=== PATIENT | male | born 1990 | race Caucasian/White ===

== ENCOUNTER 2016-09-28 10:40 | Emergency (ER) | payer MEDICAID ==
[2016-09-28 10:48] VITALS: BP 129/75
--- NOTE | 2016-09-28 11:02 | UC ---
UC General HPI - HPI Summary HPI Summary: 25 y/o male presents to the urgent care c/o feeling fatigue, severe joint pains , blurred vision on and off for the past several months. [place] and gets tick bites at all times, but haven't taking any prophylactic treatment. He states he also has HAs on and off w/ visual disturbances. Today he reports is mild pain in all his joints. He doesn't have a PCP. Pt denies fever, SOB, chest pian, N/V/D. He request the lyme serology and treatment. Pt has not other complains. - History of Current Complaint Hx Obtained From: Patient Onset/Duration: Gradual Onset, Lasting Weeks - even months on and off, Still Present Timing: Intermittent Episodes Lasting: Onset Severity: Moderate Current Severity: Moderate Pain Intensity: 4 Associated Signs & Symptoms: Positive: Back Pain, Headache, Other - join pains, myalgias. Negative: Chest Pain, Dizziness, Diarrhea, Edema, Vomiting <Marcie De La Cruz - Last Filed: 09/28/16 12:05> <Lisa Ennis - Last Filed: 09/28/16 12:14> - History of Current Complaint Chief Complaint: UCGeneralIllness Stated Complaint: FATIGUE,SHORT TERM MEM LOSS, JOINT COMPLAINTS Time Seen by Provider: 09/28/16 10:53 - Allergy/Home Medications Allergies/Adverse Reactions: Allergies Allergy/AdvReac Type Severity Reaction Status Date / Time No Known Allergies Allergy Verified 09/28/16 10:48 PMH/Surg Hx/FS Hx/Imm Hx Previously Healthy: Yes - Surgical History Surgical History: None - Family History Known Family History: Positive: None - Social History Occupation: Employed Full-time Lives: With Family Alcohol Use: Weekly Substance Use Type: None Smoking Status (MU): Never Smoked Tobacco Have You Smoked in the Last Year: No <Marcie De La Cruz - Last Filed: 09/28/16 12:05> Review of Systems Constitutional: Fever - on and off, Fatigue - w/ myalgias Skin: Negative Eyes: Blurred Vision - when he has the [facility]: Negative Respiratory: Negative Cardiovascular: Negative Gastrointestinal: Negative Genitourinary: Negative Motor: Negative Neurovascular: Negative Musculoskeletal: Arthralgia - in all joins and lower back pain Neurological: Headache Psychological: Negative All Other Systems Reviewed And Are Negative: Yes <Marcie De La Cruz - Last Filed: 09/28/16 12:05> Physical Exam Triage Information Reviewed: Yes Appearance: Well-Appearing, No Pain Distress, Well-Nourished, Thin Vital Signs: Initial Vital Signs Temp 98.9 F 09/28/16 10:44 Pulse 58 09/28/16 10:44 Resp 16 09/28/16 10:44 BP 129/75 09/28/16 10:44 Pulse Ox 100 09/28/16 10:44 Vital Signs Reviewed: Yes Eye Exam: Normal Eyes: Positive: Conjunctiva Clear - PERRLA, EOMI, fundi grossly normal ENT Exam: Normal ENT: Positive: Normal ENT inspection, Hearing grossly normal, Pharynx normal, TMs normal Dental Exam: Normal Neck exam: Normal Neck: Positive: Supple, Nontender, No Lymphadenopathy Respiratory Exam: Normal Respiratory: Positive: Chest non-tender, Lungs clear, Normal breath sounds Cardiovascular Exam: Normal Cardiovascular: Positive: RRR, No Murmur, Pulses Normal, Brisk Capillary Refill Abdominal Exam: Normal Abdomen Description: Positive: Nontender, No Organomegaly, Soft. Negative: CVA Tenderness (R), CVA Tenderness (L) Bowel Sounds: Positive: Present Musculoskeletal Exam: Normal Musculoskeletal: Positive: Strength Intact, ROM Intact, No Edema, Other: - mild tenderness to palpation in B/L elbows, wrists, knees. Neurological Exam: Normal Psychological Exam: Normal Skin Exam: Normal <JonoMarcie - Last Filed: 09/28/16 12:05> Vital Signs: Initial Vital Signs Temp 98.9 F 09/28/16 10:44 Pulse 58 09/28/16 10:44 Resp 16 09/28/16 10:44 BP 129/75 09/28/16 10:44 Pulse Ox 100 09/28/16 10:44 <Lisa Ennis - Last Filed: 09/28/16 12:14> Course/Dx - Course Course Of Treatment: 25 y/o male presents to the urgent care c/o feeling fatigue , severe joint pains, blurred vision on and off for the past several months. Pt [place] and gets tick bites at all times, but haven 't taking any prophylactic treatment. He states he also has HAs on and off w/ visual disturbances. Today he reports is mild pain in all his joints. He doesn 't have a PCP. Pt denies fever, SOB, chest pian, N/V/D. He request the lyme serology and treatment. Pt has not other complains.Hx obtained. PE abnormal findings:Musculoskeletal: Positive: Strength Intact, ROM Intact, No Edema, Other : - mild tenderness to palpation in B/L elbows, wrists, knees. Lyme serology ordered, Pt educated on Lyme. Pt with HX of tick bite w/o prophylactic treatment. Pt Rx Doxyxycline 100mg PO BID x 21 days. Advised to complete Tx despite Serology results. Strongly advised to f/u with a PCP in the [facility] referall center and DR Galdamez infectious Disease for further evaluation and treatment. Pt understood and agreed. Pt left the clinic ambulating. - Differential Dx - Multi-Symptom Differential Diagnoses: Other - arhtalgia, URI, tick born illness, arthritis, Provider Diagnoses: 1-arthalgias r/o lyme disease. <Marcie De La Cruz - Last Filed: 09/28/16 12:05> Discharge <Marcie De La Cruz - Last Filed: 09/28/16 12:05> <Lisa Ennis - Last Filed: 09/28/16 12:14> - Discharge Plan Condition: Stable Disposition: HOME Prescriptions: DOXYcycline CAP(*) [DOXYcycline 100MG CAP(*)] 100 mg PO BID #42 cap Patient Education Materials: Lyme Disease (ED) Referrals: [facility] PHYSICIAN REFERRAL [Outside] - 1 Week Fahad Galdamez MD [Medical Doctor] - 1 Week No Primary Care Phys,NOPCP [Primary Care Provider] - Additional Instructions: Please take medications as instructed and finish the full course of treatment even if the Lyme serology return negative. Please f/u with a PCP from the [facility] referral further evaluation and treatment in your symptoms or Dr Galdamez infectious Disemicheline Chua Attestation Statement User Type: Provider - I was available for consult. This patient was seen by the JOSE. The patient was not presented to, seen by, or examined by me. -Cameron <Lisa Ennis - Last Filed: 09/28/16 12:14>
== END 2016-09-28 11:20 | disposition home or self-care (01) ==
LOC: UCEAST 10:40
DX: M25.522 Pain in left elbow (principal); M25.521 Pain in right elbow; M25.532 Pain in left wrist; M25.531 Pain in right wrist; M25.562 Pain in left knee; M25.561 Pain in right knee
CPT/HCPCS: 86618; 99212; G0463

== ENCOUNTER 2018-06-01 18:17 | Emergency (ER) | payer OTHER ==
[2018-06-01] MEDS ORDERED: Acetaminophen TAB* 325 MG PO ONE (18:35)
[2018-06-01] MEDS ORDERED: Acetaminophen TAB* 325 MG ONE (18:36)
[2018-06-01 19:08] LABS: Influenza A Molecular POSITIVE (Negative)
[2018-06-01] MEDS ORDERED: Oseltamivir CAP* 75 MG CAP PO ONE (20:37)
[2018-06-01] MEDS ORDERED: Ibuprofen TAB* 800 MG PO ONE (20:37)
--- NOTE | 2018-06-01 20:39 | ED ---
Influenza-Like Illness - HPI Summary HPI Summary: This patient is a 27 year old M presenting to [facility] with a chief complaint of dizziness since earlier today. He reports that he has been sick the past week with fever and nausea (secondary to standing up). Patient denies congestion. 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 - History of Current Complaint Chief Complaint: EDFluSymptoms Time Seen by Provider: 06/01/18 20:25 Hx Obtained From: Patient Onset/Duration: Sudden Onset, Lasting Days Severity: Mild Associated Signs & Symptoms: Fever - Allergy/Home Medications Allergies/Adverse Reactions: Allergies Allergy/AdvReac Type Severity Reaction Status Date / Time No Known Allergies Allergy Verified 06/01/18 18:20 PMH/Surg Hx/FS Hx/Imm Hx Endocrine/Hematology History: Denies: Hx Diabetes Respiratory History: Denies: Hx Asthma - Surgical History Surgery Procedure, Year, and Place: None Infectious Disease History: No Infectious Disease History: Denies: Traveled Outside the [place] in Last 30 Days - Family History Known Family History: Negative: Cardiac Disease, Diabetes - Social History Alcohol Use: Weekly Substance Use Type: Reports: None Smoking Status (MU): Never Smoked Tobacco Have You Smoked in the Last Year: No Review of Systems Positive: Fever Positive: Nausea - Secondary to standing up All Other Systems Reviewed And Are Negative: Yes Physical Exam - Summary Physical Exam Summary: VITAL SIGNS: Reviewed. GENERAL: Patient is a well-developed and nourished MALE who is lying comfortable in the stretcher. Patient is not in any acute respiratory distress. HEAD AND FACE: No signs of trauma. No ecchymosis, hematomas or skull depressions. No sinus tenderness. EYES: PERRLA, EOMI x 2, No injected conjunctiva, no nystagmus. EARS: Hearing grossly intact. Ear canals and tympanic membranes are within normal limits. MOUTH: Oropharynx within normal limits. NECK: Supple, trachea is midline, no adenopathy, no JVD, no carotid bruit, no c- spine tenderness, neck with full ROM. CHEST: Symmetric, no tenderness at palpation LUNGS: Clear to auscultation bilaterally. No wheezing or crackles. CVS: Regular rate and rhythm, S1 and S2 present, no murmurs or gallops appreciated. ABDOMEN: Soft, non-tender. No signs of distention. No rebound no guarding, and no masses palpated. Bowel sounds are normal. EXTREMITIES: FROM in all major joints, no edema, no cyanosis or clubbing. NEURO: Alert and oriented x 3. No acute neurological deficits. Speech is normal and follows commands. SKIN: Dry and warm Triage Information Reviewed: Yes Vital Signs On Initial Exam: Initial Vitals Temp Pulse Resp BP Pulse Ox 102.8 F 106 16 162/94 97 06/01/18 18:21 06/01/18 18:21 06/01/18 18:21 06/01/18 18:21 06/01/18 18:21 Vital Signs Reviewed: Yes Diagnostics - Vital Signs Vital Signs Temp Pulse Resp BP Pulse Ox 06/01/18 18:21 102.8 F 106 16 162/94 97 - Laboratory Lab Results: Lab Results 06/01/18 Range/Units 19:01 Influenza A (Rapid) Positive A (Negative) Lab Statement: Any lab studies that have been ordered have been reviewed, and results considered in the medical decision making process. Flu Symptom Course/Dx - Course Course Of Treatment: This patient is a 27 year old M presenting to [facility] with a chief complaint of dizziness since earlier today. He reports that he has been sick the past week with fever and nausea (secondary to standing up). Patient tested positive for Influenza A. He will be discharged with a dx of flu. - Diagnoses Provider Diagnoses: Flu Discharge - Sign-Out/Discharge Documenting (check all that apply): Patient Departure - D/C home Patient Received Moderate/Deep Sedation with Procedure: No - Discharge Plan Condition: Stable Disposition: HOME Prescriptions: Ibuprofen TAB* [Motrin TAB* 800 MG] 800 mg PO Q6H PRN #30 tab PRN Reason: Pain Or Fever Oseltamivir CAP* [Tamiflu CAP*] 75 mg PO BID #10 cap Patient Education Materials: Influenza (ED) Referrals: [facility] [Outside] Additional Instructions: PLEASE RETURN TO THE ED TO IMMEDIATELY FOR WORSENING OR CONCERNING SYMPTOMS. - Attestation Statements Document Initiated by Scribe: Yes Documenting Scribe: Won Bruce Provider For Whom Scribe is Documenting (Include Credential): Eric Garcia MD Scribe Attestation: Won Keller, scribed for Eric Garcia MD on 06/01/18 at 2040. Status of Scribe Document: Ready
[2018-06-01 20:40] VITALS: BP 158/84
== END 2018-06-01 20:55 | disposition home or self-care (01) ==
LOC: ED 18:17
DX: J11.1 Influenza due to unidentified influenza virus with other respiratory manifestations (principal); R50.9 Fever, unspecified; R42 Dizziness and giddiness
CPT/HCPCS: 99284; A9270-GY